=== PATIENT | female | born 1985 | race Hispanic/Latino ===

== ENCOUNTER 2022-02-18 18:06 | Emergency (ER) | payer SELFPAY ==
--- OUTSIDE RECORDS SUMMARY | 2022-02-18 18:11 | XMS REPORT | Continuity of Care Document ---
:[address] [facility] t Address [address] [place] [address] Care Team Providers Name Role Phone Felton Attending Clinician Unavailable Sara_Sadaf Attending Clinician Unavailable RUPALI Attending Clinician Unavailable Casey Attending Clinician Unavailable Kris_Sadaf Admitting Clinician Unavailable Sara_M Admitting Clinician Unavailable RUPALI Admitting Clinician Unavailable Casey Admitting Clinician Unavailable Payers Payer Name Policy Type Policy Number Effective Date Expiration Date S cam[id number] 2019 [place] 00:00:00 [place] [id number] [facility] (MEDICAID) [facility] [id number] 2017 2019 (PPO) 00:00:00 00:00:00 [facility] [id number] 2015 2019 [facility] 00:00:00 00:00:00 (MEDICAID O) Problems Condition Condition Condition Status Onset Resolution Last Treating Co mments Source Name Details Category Date Date Treatment Clinician Date Headache Headache Problem Active [facility] 5-05 da 00:00: Medical 00 Group Furuncle Furuncle Problem Active [facility] [facility] of vulva of Vulva 2-08 da 00:00: Medical 00 Group Persistent Persistent Problem Active M [facility] microscopi Microscopi 6-05 da c c 00:00: Medical hematuria Hematuria 00 Grou p Hearing Hearing Problem Active [place] loss Loss [facility] Allergies, Adverse Reactions, Alerts Allergy Allergy Status Severity Reaction(s) Onset Inactive Treating Comm ents Source Name Type Date Date Clinician Tylenol Allergy Active Mild Rash [place] to da substanc Medical e Group Social History Smoking Status Start Date Stop Date Source Never Smoker [facility] Medications Ordered Filled Start Stop Current Ordering Indication Dosage Frequency Signature Comments Components Source Medication Medication Date Date Medication? Clinician (SIG) Name Name Augmentin Augmentin No 10mL Q12H Augmentin [place] 250 mg-62.5 250 mg-62.5 250 d a mg/5 mL mg/5 mL mg-62.5 Medica l oral oral mg/5 mL Group suspension suspension oral Take 10 mL Take 10 mL suspension every 12 every 12 Take 10 mL hours by hours by every 12 oral route oral route hours by for 5 days. for 5 days. oral route for 5 days. baclofen 10 baclofen 10 No baclofen [facility] mg tablet mg tablet 10 mg da TAKE 1 TAKE 1 tablet Medical TABLET BY TABLET BY TAKE 1 Corina up MOUTH THREE MOUTH THREE TABLET BY TIMES DAILY TIMES DAILY MOUTH NEEDED NEEDED THREE TIMES DAILY NEEDED Diflucan Diflucan No 1 Q1D Diflucan [facility] 100 mg 100 mg 100 mg da tablet Take tablet Take tablet Medical 1 tablet 1 tablet Take 1 Group every day every day tablet by oral by oral every day route for 3 route for 3 by oral days. days. route for 3 days. doxycycline doxycycline No doxycyclin [place] hyclate 100 hyclate 100 e hyclate da mg tablet mg tablet 100 mg Med ical TAKE ONE TAKE ONE tablet Group (1) TABLET (1) TABLET TAKE ONE BY MOUTH BY MOUTH (1) TABLET DAILY WITH DAILY WITH BY MOUTH FOOD. TAKE FOOD. TAKE DAILY WITH 2 HOURS 2 HOURS FOOD. TAKE BEFORE OR BEFORE OR 2 HOURS AFTER AFTER BEFORE OR VITAMIN VITAMIN AFTER SUPPLEMENTS SUPPLEMENTS VITAMIN . . SUPPLEMENT S. metronidazo metronidazo No metronidaz [place] le 0.75 % le 0.75 % ole 0.75 % da vaginal gel vaginal gel vaginal Medical INSERT ONE INSERT ONE gel INSERT Group (1) (1) ONE (1) APPLICATORF APPLICATORF APPLICATOR UL EVERY UL EVERY FUL EVERY DAY BY DAY BY DAY BY VAGINAL VAGINAL VAGINAL ROUTE FOR 5 ROUTE FOR 5 ROUTE FOR DAYS. DAYS. 5 DAYS. nystatin nystatin No nystatin [facility] 100,000 100,000 100,000 da unit/gram unit/gram unit/gram Medical topical topical topical Group cream APPLY cream APPLY cream TO THE TO THE APPLY TO AFFECTED AFFECTED THE AREA(S) BY AREA(S) BY AFFECTED TOPICAL TOPICAL AREA(S) BY ROUTE 2 ROUTE 2 TOPICAL TIMES PER TIMES PER ROUTE 2 DAY DAY TIMES PER DAY nystatin-tr nystatin-tr No nystatin-t [place] iamcinolone iamcinolone riamcinolo da 100,000 100,000 ne 100,000 Med ical unit/g-0.1 unit/g-0.1 unit/g-0.1 Group % topical % topical % topical cream APPLY cream APPLY cream TO THE TO THE APPLY TO AFFECTED AFFECTED THE AREA(S) BY AREA(S) BY AFFECTED TOPICAL TOPICAL AREA(S) BY ROUTE 2 ROUTE 2 TOPICAL TIMES PER TIMES PER ROUTE 2 DAY IN THE DAY IN THE TIMES PER MORNING AND MORNING AND DAY IN THE EVENING. EVENING. MORNING AND EVENING. tretinoin tretinoin No tretinoin [place] 0.1 % 0.1 % 0.1 % da topical topical topical Medica l cream APPLY cream APPLY cream Group PEA-SIZED PEA-SIZED APPLY AMOUNT TO AMOUNT TO PEA-SIZED ENTIRE FACE ENTIRE FACE AMOUNT TO AT BEDTIME, AT BEDTIME, ENTIRE WASH OFF IN WASH OFF IN FACE AT AM AM BEDTIME, WASH OFF IN AM triamcinolo triamcinolo No triamcinol [place] ne ne one da acetonide acetonide acetonide Medical 0.5 % 0.5 % 0.5 % Group topical topical topical cream APPLY cream APPLY cream A THIN A THIN APPLY A LAYER TO LAYER TO THIN LAYER THE THE TO THE AFFECTED AFFECTED AFFECTED AREA(S) BY AREA(S) BY AREA(S) BY TOPICAL TOPICAL TOPICAL ROUTE 2-3 ROUTE 2-3 ROUTE 2-3 TIMES PER TIMES PER TIMES PER DAY DAY DAY metronidazo metronidazo No 1applic Q1D metronidaz [place] le 0.75 % le 0.75 % ator(s) ole 0.75 % da (37.5 mg/5 (37.5 mg/5 ful (37.5 mg/5 Medical gram) gram) gram) Group vaginal gel vaginal gel vaginal Insert 1 Insert 1 gel Insert applicatorf applicatorf 1 ul every ul every applicator day by day by ful every vaginal vaginal day by route at route at vaginal bedtime for bedtime for route at 5 days. 5 days. bedtime for 5 days. spironolact spironolact No spironolac [place] one 50 mg one 50 mg tone 50 mg da tablet TAKE tablet TAKE tablet Medical ONE (1) ONE (1) TAKE ONE Group TABLET(S) TABLET(S) (1) BY MOUTH BY MOUTH TABLET(S) DAILY. DAILY. BY MOUTH DAILY. tretinoin tretinoin No tretinoin [facility] 0.1 % 0.1 % 0.1 % da topical topical topical Medica l cream APPLY cream APPLY cream Group TO ACNE AT TO ACNE AT APPLY TO BEDTIME, BEDTIME, ACNE AT WASH OFF IN WASH OFF IN BEDTIME, THE THE WASH OFF MORNING. MORNING. IN THE MORNING. Vital Signs Vital Name Observation Time Observation Value Comments Source BP Diastolic 2022-01-26 00:00:00 80 mm[Hg] [facility] Height 2022-01-26 00:00:00 59 [in_i] [facility] BMI (Body Mass 2022-01-26 00:00:00 28.9 kg/m2 [facility] Index) Group BP Systolic 2022-01-26 00:00:00 128 mm[Hg] [facility] Body Weight 2022-01-26 00:00:00 143 [lb_av] [facility] BP Diastolic 2021-08-12 00:00:00 78 mm[Hg] [facility] Height 2021-08-12 00:00:00 59 [in_i] [facility] BMI (Body Mass 2021-08-12 00:00:00 28.7 kg/m2 [facility] Index) Group BP Systolic 2021-08-12 00:00:00 126 mm[Hg] [facility] Body Weight 2021-08-12 00:00:00 142 [lb_av] [facility] BP Diastolic 2021-06-07 00:00:00 70 mm[Hg] [facility] Height 2021-06-07 00:00:00 59 [in_i] [facility] BMI (Body Mass 2021-06-07 00:00:00 28 kg/m2 [facility] Index) Group BP Systolic 2021-06-07 00:00:00 99 mm[Hg] [facility] Body Weight 2021-06-07 00:00:00 138.6 [lb_av] [facility] BP Diastolic 2021-06-01 00:00:00 77 mm[Hg] [facility] Height 2021-06-01 00:00:00 59 [in_i] [facility] BMI (Body Mass 2021-06-01 00:00:00 28.2 kg/m2 [facility] Index) Group BP Systolic 2021-06-01 00:00:00 124 mm[Hg] [facility] Body Weight 2021-06-01 00:00:00 2230.4 [oz_av] [facility] BP Diastolic 2020-11-23 00:00:00 86 mm[Hg] [facility] Height 2020-11-23 00:00:00 59 [in_i] [facility] BP Systolic 2020-11-23 00:00:00 118 mm[Hg] [facility] BP Diastolic 2020-11-09 00:00:00 80 mm[Hg] [facility] Height 2020-11-09 00:00:00 59 [in_i] [facility] BMI (Body Mass 2020-11-09 00:00:00 26.5 kg/m2 [facility] Index) Group BP Systolic 2020-11-09 00:00:00 110 mm[Hg] [facility] Body Weight 2020-11-09 00:00:00 131.3 [lb_av] [facility] BP Diastolic 2020-07-19 00:00:00 76 mm[Hg] [facility] Height 2020-07-19 00:00:00 59 [in_i] [facility] BMI (Body Mass 2020-07-19 00:00:00 27 kg/m2 [facility] Index) Group BP Systolic 2020-07-19 00:00:00 110 mm[Hg] [facility] Body Weight 2020-07-19 00:00:00 2136 [oz_av] [facility] BP Diastolic 2019-05-14 00:00:00 77 mm[Hg] [facility] Height 2019-05-14 00:00:00 59 [in_i] [facility] BMI (Body Mass 2019-05-14 00:00:00 27.3 kg/m2 [facility] Index) Group BP Systolic 2019-05-14 00:00:00 114 mm[Hg] [facility] Body Weight 2019-05-14 00:00:00 2166 [oz_av] [facility] Height 2018-11-15 00:00:00 59 [in_i] [facility] BMI (Body Mass 2018-11-15 00:00:00 25.7 kg/m2 [facility] Index) Group Body Weight 2018-11-15 00:00:00 127.4 [lb_av] [facility] BP Diastolic 2018-10-15 00:00:00 68 mm[Hg] [facility] Height 2018-10-15 00:00:00 59 [in_i] [facility] BP Systolic 2018-10-15 00:00:00 108 mm[Hg] [facility] BP Diastolic 2018-09-26 00:00:00 66 mm[Hg] [facility] Height 2018-09-26 00:00:00 59 [in_i] [facility] BMI (Body Mass 2018-09-26 00:00:00 28.1 kg/m2 [facility] Index) Group BP Systolic 2018-09-26 00:00:00 122 mm[Hg] [facility] Body Weight 2018-09-26 00:00:00 139 [lb_av] [facility] BP Diastolic 2018-08-21 00:00:00 70 mm[Hg] [facility] Height 2018-08-21 00:00:00 59 [in_i] [facility] BMI (Body Mass 2018-08-21 00:00:00 27.3 kg/m2 [facility] Index) Group BP Systolic 2018-08-21 00:00:00 110 mm[Hg] [facility] Body Weight 2018-08-21 00:00:00 135.3 [lb_av] [facility] BP Diastolic 2018-07-26 00:00:00 57 mm[Hg] [facility] Height 2018-07-26 00:00:00 59 [in_i] [facility] BMI (Body Mass 2018-07-26 00:00:00 26.9 kg/m2 [facility] Index) Group BP Systolic 2018-07-26 00:00:00 105 mm[Hg] [facility] Body Weight 2018-07-26 00:00:00 133.2 [lb_av] [facility] BP Diastolic 2018-06-27 00:00:00 74 mm[Hg] [facility] Height 2018-06-27 00:00:00 59 [in_i] [facility] BMI (Body Mass 2018-06-27 00:00:00 27 kg/m2 [facility] Index) Group BP Systolic 2018-06-27 00:00:00 110 mm[Hg] [facility] Body Weight 2018-06-27 00:00:00 133.5 [lb_av] [facility] BP Diastolic 2018-06-06 00:00:00 63 mm[Hg] [facility] Height 2018-06-06 00:00:00 59 [in_i] [facility] BMI (Body Mass 2018-06-06 00:00:00 26.1 kg/m2 [facility] Index) Group BP Systolic 2018-06-06 00:00:00 104 mm[Hg] [facility] Body Weight 2018-06-06 00:00:00 129 [lb_av] [facility] BP Diastolic 2018-05-14 00:00:00 [facility] 2018-05-14 00:00:00 59 [in_i] [facility] BMI (Body Mass 2018-05-14 00:00:00 25.2 kg/m2 [facility] Index) Group BP Systolic 2018-05-14 00:00:00 109 mm[facility]Hg[facility] Body Weight 2018-05-14 00:00:00 125 [lb_av] [facility] Procedures Procedure Date / Time Performing Clinician Source Performed CT, head, w/o contrast 2020-07-19 00:00:00 [facility] US, obstetric, limited 2018-10-15 00:00:00 [facility] US, obstetric, limited 2018-09-26 00:00:00 [facility] ULTRASOUND REPEAT 2018-08-21 00:00:00 [facility] ULTRASOUND, 2018-06-06 00:00:00 [facility] UTERUS REAL TIME WITH Group IMAGE DOC, AND MATERNAL EVAL PLUS DETAILED ANATOMIC EXAMINATION, TRANSABDOMINAL APPROACH; SINGLE OR FIRST GESTATION US, obstetric, limited 2018-06-06 00:00:00 [facility] US, obstetric, limited 2018-05-14 00:00:00 [facility] Dilation and Curettage 2013-06-06 00:00:00 [facility] Plan of Care Planned Activity Planned Date Details Comments Source Diagnostic Test Pending 2022-01-26 CT [facility] DNA, urine/swab Group [code = CT + NG + TV, DNA, urine/swab] Diagnostic Test Pending 2022-01-26 wet mount, [place] moe Medical 00:00:00 vaginal [code = Group wet mount, vaginal] Instructions [facility] Encounters Start End Encounter Admission Attending Care Care Encounter Source Date/Time Date/Time Type Type Clinicians Facility Department ID 2022-02-14 2022-02-14 Outpatient Hawkins_M [facility]G MMG [id number] [facility] 00:00:00 00:00:00 1129 melania [facility] 2022-02-13 2022-02-13 Outpatient Hawkins_M MMG MMG [id number] [facility] 00:00:00 00:00:00 1128 [facility] 2022-01-26 2022-01-26 Outpatient White_M MMG MMG [id number] [facility] 00:00:00 00:00:00 1110 [facility] 2022-01-26 2022-01-26 Benigno MMG [place] - [id number] [facility] 00:00:00 00:00:00 Discovery melania Murry MD: [address] [place] [phone] , Ph. [phone] 2021-12-19 2021-12-19 Outpatient White_M MMG MMG [id number] [facility] 00:00:00 00:00:00 1003 [facility] 2021-11-18 2021-11-18 Outpatient White_M MMG MMG [id number] [facility] 00:00:00 00:00:00 0902 [facility] 2021-10-14 2021-10-14 Outpatient White_M MMG MMG [id number] [facility] 00:00:00 00:00:00 0729 [facility] 2021-09-27 2021-09-27 Outpatient STACY_ROM LORENZANA [place] [id number] [facility] 05:32:00 05:32:00 HN 0712 [facility] Program 2021-09-09 2021-09-09 Outpatient White_M MMG MMG [id number] [facility] 04:36:00 04:36:00 0624 [facility] 2021-08-12 2021-08-12 Benigno White_[place] MM[place] - [id number] [facility] 00:00:00 00:00:00 Discovery Loco 0527 melania MD: [address] [place] [phone] , Ph. [phone] 2021-08-05 2021-08-05 Outpatient White_M MMG MMG [id number] [facility] 06:47:00 06:47:00 0520 Medical Group 2021-07-01 2021-07-01 [place] [id number] [facility] 03:31:00 03:31:00 0415 [facility] 2021-06-29 2021-06-29 Outpatient White_M MMG MMG [id number] [facility] 03:16:00 03:16:00 0413 [facility] 2021-06-07 2021-06-07 Marisol White_[place] MM[place] - [id number] [facility] 00:00:00 00:00:00 Discovery Sara 0322 [facility]: [address] [address] , Ph. [phone] 2021-06-01 2021-06-01 Nohemy White_M MMG [place] - [id number] [facility] 00:00:00 00:00:00 Karen Andersen 0316 melania Ponce [facility] Medical [employer]: [address] [place] [address], [place] [phone] , Ph. 2020-12-02 2020-12-02 [place] [id number] [facility] 03:41:00 03:41:00 0916 [facility] 2020-11-23 2020-11-23 Nohemy White_[place] MMG [place] - [id number] [facility] 00:00:00 00:00:00 Karen Andersen 0907 melania Ponce [facility] Medical [employer]: [address] [place] [address], [place] [address] , Ph. 2020-11-09 2020-11-09 Marisol White_[place] MMG [place] - [id number] [facility] 00:00:00 00:00:00 Discovery Sara 0824 melania [facility]: [address] [address] , Ph. [phone] 2020-10-21 2020-10-21 [place] [id number] [facility] 01:19:00 01:19:00 0805 [facility] 2020-09-16 2020-09-16 Outpatient Kris_M MMG MMG [id number] [facility] 02:11:00 02:11:00 0701 [facility] 2020-08-13 2020-08-13 Outpatient Kris_M MMG MMG [id number] [facility] 01:02:00 01:02:00 0528 [facility] 2020-07-19 2020-07-19 Nohemy Kris_M MMG [place] - [id number] [facility] 00:00:00 00:00:00 [facility] 0[facility] [employer]: [address] [facility] [address], [place] [address] , Ph. 2020-07-16 2020-07-16 [place] [id number] [place] 04:31:00 04:31:00 0430 [facility] 2020-07-09 2020-07-09 Outpatient G_Pappas MMG MMG [id number] [facility] 01:03:00 01:03:00 0423 Medical Group 2020-06-04 2020-06-04 Outpatient G_Pappas MMG MMG [id number] [place] 01:04:00 01:04:00 0319 Medical Group 2020-04-30 2020-04-30 Outpatient G_Pappas MMG MMG [id number] [facility] 01:02:00 01:02:00 0212 [facility] 2020-04-27 2020-04-27 Outpatient G_Pappas MMG MMG [id number] [facility] 11:52:00 11:52:00 0209 [facility] 2020-04-26 2020-04-26 Outpatient G_Pappas MMG MMG [id number] [facility] 11:13:00 11:13:00 0208 Medical Group 2020-02-05 2020-02-05 Outpatient G_Pappas MMG MMG [id number] [facility] 05:16:00 05:16:00 1119 [facility] 2020-02-04 2020-02-04 Outpatient G_Pappas MMG [facility] [id number] [facility] 02:35:00 02:35:00 1118 [facility] 2019-10-13 2019-10-13 Outpatient G_Pappas MMG [facility] 2019 [place] 03:07:00 03:07:00 0727 [facility] 2019-05-15 2019-05-15 Outpatient G_Pappas MMG [facility] 2019 [facility] 09:39:00 09:39:00 0227 da [facility] 2019-05-14 2019-05-14 Mima G_Pappas [facility] [place] - [id number] [facility] 00:00:00 00:00:00 Discovery Roxana 0226 da [employer]: [address] [place] [phone] , Ph. 2018-11-15 2018-11-15 Benigno [facility] [place] - [id number] [facility] 00:00:00 00:00:00 Discovery Loco 0830 melania MD: [address] [place] [phone] , Ph. [phone] 2018-10-15 2018-10-15 Myah [facility] [place] - [id number] [facility] 00:00:00 00:00:00 Charan Andersen 0730 melania [facility] baldo MD: [address] [place] [phone] , Ph. [phone] 2018-09-26 2018-09-26 Benigno [facility] [place] - [id number] [facility] 00:00:00 00:00:00 Discovery Loco 0711 melania MD: [address] [place] [phone] , Ph. [phone] 2018-08-21 2018-08-21 Ceci Tai [facility] [place] [place] - [id number] [facility] 00:00:00 00:00:00 Discovery Mike 0605 da WHNP: [address] [place] [phone] , Ph. [phone] 2018-07-26 2018-07-26 Myah [facility] [place] - [id number] [facility] 00:00:00 00:00:00 Charan Andersen 0510 [facility] MD: [address] [place] [phone] , Ph. [phone] 2018-06-27 2018-06-27 Benigno [facility] [place] - [id number] [facility] 00:00:00 00:00:00 Discovery Loco 0411 melania MD: [address] [place] [phone] , Ph. [phone] 2018-06-06 2018-06-06 Ceci Tai [facility] [place] [place] - [id number] [facility] 00:00:00 00:00:00 Discovery Mike 0321 da WHNP: [address] [place], [place] [phone] , Ph. [phone] 2018-05-14 2018-05-14 Benigno [facility] [place] - [id number] [facility] 00:00:00 00:00:00 Discovery Loco 0226 melania DON: [address] [place] [phone] , Ph. [phone] Results Test Description Test Time Test Comments Results Result Comments Source Microscopic observation [Identifier] in Vaginal fluid by Wet 2022-01-26 09:47:06 preparation Test Item Value Reference Range Interpretation Comme nts Clue Cells (test code = Clue Cells) positive WBCs (test code = WBCs) positive Trichomonads (test code = Trichomonads) negative Epithelial cells (test code = Epithelial cells) abnormal RBCs (test code = RBCs) positive [facility], [id number] 11:11:00 Test Item Value Reference Range Interpretation Comments Strep Result (test code = Strep positive Result) [facility] [Identifier] in Vaginal fluid by Wet [id number] 10:05:36 Test Item Value Reference Range Interpretation Comments Clue Cells (test code = Clue Cells) negative WBCs (test code = WBCs) positive Trichomonads (test code = negative Trichomonads) Epithelial cells (test code = normal Epithelial cells) RBCs (test code = RBCs) negative [facility] macro (dipstick) panel - [id number] 09:40:35 Test Item Value Reference Range Interpretation Comments Leukocytes (test code = Leukocytes) Small Nitrite (test code = Nitrite) negative Urobilinogen (test code = .2 Urobilinogen) Protein (test code = Protein) Negative pH (test code = pH) 5.0 Blood (test code = Blood) Moderate Specific [place] (test code = 1.030 Specific [place]) Ketone (test code = Ketone) Negative Bilirubin (test code = Bilirubin) Negative Glucose (test code = Glucose) Negative Appearance (test code = Appearance) Clear Color (test code = Color) Yellow [facility] macro (dipstick) panel - [id number] 10:11:23 Test Item Value Reference Range Interpretation Comments Leukocytes (test code = Leukocytes) Trace Nitrite (test code = Nitrite) negative Urobilinogen (test code = .2 Urobilinogen) Protein (test code = Protein) Negative pH (test code = pH) 5.5 Blood (test code = Blood) Moderate Specific [place] (test code = 1.030 Specific [place]) Ketone (test code = Ketone) Trace Bilirubin (test code = Bilirubin) Small Glucose (test code = Glucose) Negative Appearance (test code = Appearance) Clear Color (test code = Color) Yellow [facility] macro (dipstick) panel - [id number] 10:11:23 Test Item Value Reference Range Interpretation Comments Leukocytes (test code = Leukocytes) Trace Nitrite (test code = Nitrite) negative Urobilinogen (test code = .2 Urobilinogen) Protein (test code = Protein) Negative pH (test code = pH) 5.5 Blood (test code = Blood) Moderate Specific [place] (test code = 1.030 Specific [place]) Ketone (test code = Ketone) Trace Bilirubin (test code = Bilirubin) Small Glucose (test code = Glucose) Negative Appearance (test code = Appearance) Clear Color (test code = Color) Yellow [facility] complete W Reflex Culture panel - Urine 2021-06-02 10:13:00 Test Item Value Reference Range Interpretation Comments Color of Urine by Auto (test yellow code = 16857-4) Appearance of Urine (test code turbid clear = 5767-9) Glucose [Mass/volume] in Urine negative negative (test code = 2350-7) bilirubin, urine (test code = negative negative bilirubin, urine) ketone, urine (test code = negative negative ketone, urine) Specific gravity of Urine by >=1.030 1.003-1.030 Automated test strip (test code = 43418-6) Hemoglobin [Presence] in Urine large negative H by Test strip (test code = 5794-3) pH of Urine (test code = 5.500 5-9 2756-5) protein urine (UA) (test code = negative negative protein urine (UA)) Urobilinogen [Presence] in 0.2 E.U./dL 0.2-1.0 Urine (test code = 55046-9) Nitrite [Presence] in Urine by positive negative Test strip (test code = 5802-4) urine leukocyte esterase (test negative negative code = urine leukocyte esterase) Erythrocytes [Presence] in =6-10 0-5 Urine (test code = 05167-5) WBC, urine (test code = WBC, none seen 0-5 urine) bacteria, urine (test code = none detected none detect bacteria, urine) urine culture added? (test code no = urine culture added?) Amorphous sediment [Presence] full field none seen in Urine sediment by Light microscopy (test code = 8246-1) [facility] 2000 panel - Serum or Plasma 2021-06-02 10:13:00 Test Item Value Reference Range Interpretation Comments Glucose [Mass/volume] in Serum or 89 mg/dL 74-106 Plasma (test code = 2345-7) Urea nitrogen [Mass/volume] in 12 mg/dL 6-20 Serum or Plasma (test code = 3094-0) osmolality calculated,serum (test 273 mOsm/kg 280-300 L code = osmolality calculated,serum) creatinine (test code = 0.48 mg/dL 0.50-0.90 L creatinine) glomerular filtration rate (test >60.00 code = glomerular filtration rate) Urea nitrogen/Creatinine [Mass 25.0 12.0-20.0 H Ratio] in Serum or Plasma (test code = 3097-3) sodium level (test code = sodium 137 mmol/L 135-145 level) potassium level (test code = 3.8 mmol/L 3.5-5.2 potassium level) chloride level (test code = 104 mmol/L 98-108 chloride level) CO2 (test code = CO2) 23 mmol/L 21-32 anion gap (test code = anion gap) 13.8 mEq/L 12.0-20.0 calcium level (test code = 8.9 mg/dL 8.6-10.0 calcium level) total protein (test code = total 7.4 g/dL 6.6-8.7 protein) albumin (test code = albumin) 4.4 g/dL 3.5-5.2 globulin (test code = globulin) 3.0 g/dL 1.5-4.5 A/G ratio (test code = A/G ratio) 1.5 >1.0 bilirubin,total (test code = 0.4 mg/dL 0.0-1.2 bilirubin,total) AST/SGOT (test code = AST/SGOT) 17 U/L 15-32 Alanine aminotransferase 15 U/L 0-33 [Enzymatic activity/volume] in Serum or Plasma (test code = 1742-6) Alkaline phosphatase [Enzymatic 37 U/L 35-105 activity/volume] in Serum or Plasma (test code = 6768-6) [facility] - Serum or [id number] 10:13:00 Test Item Value Reference Range Interpretation Comments cholesterol level (test code = 136 mg/dL 150-200 L cholesterol level) triglycerides level (test code = 62 mg/dL <150 triglycerides level) HDL cholesterol (test code = HDL 68 mg/dL >65 cholesterol) LDL cholesterol direct (test code = 64 mg/dL <100 LDL cholesterol direct) cholesterol risk ratio (test code = 2.000 cholesterol risk ratio) [facility]Ur[facility] W Reflex Culture panel - Urine 2021-06-02 10:13:00 Test Item Value Reference Range Interpretation Comments Color of Urine by Auto (test yellow code = 25311-6) Appearance of Urine (test code turbid clear = 5767-9) Glucose [Mass/volume] in Urine negative negative (test code = 2350-7) bilirubin, urine (test code = negative negative bilirubin, urine) ketone, urine (test code = negative negative ketone, urine) Specific gravity of Urine by >=1.030 1.003-1.030 Automated test strip (test code = 69779-9) Hemoglobin [Presence] in Urine large negative H by Test strip (test code = 5794-3) pH of Urine (test code = 5.500 5-9 2756-5) protein urine (UA) (test code = negative negative protein urine (UA)) Urobilinogen [Presence] in 0.2 E.U./dL 0.2-1.0 Urine (test code = 14216-4) Nitrite [Presence] in Urine by positive negative Test strip (test code = 5802-4) urine leukocyte esterase (test negative negative code = urine leukocyte esterase) Erythrocytes [Presence] in =6-10 0-5 Urine (test code = 17127-6) WBC, urine (test code = WBC, none seen 0-5 urine) bacteria, urine (test code = none detected none detect bacteria, urine) urine culture added? (test code no = urine culture added?) Amorphous sediment [Presence] full field none seen in Urine sediment by Light microscopy (test code = 8246-1) [facility] 2000 [facility] - Serum or Plasma 2021-06-02 10:13:00 Test Item Value Reference Range Interpretation Comments Glucose [Mass/volume] in Serum or 89 mg/dL 74-106 Plasma (test code = 2345-7) Urea nitrogen [Mass/volume] in 12 mg/dL 6-20 Serum or Plasma (test code = 3094-0) osmolality calculated,serum (test 273 mOsm/kg 280-300 L code = osmolality calculated,serum) creatinine (test code = 0.48 mg/dL 0.50-0.90 L creatinine) glomerular filtration rate (test >60.00 code = glomerular filtration rate) Urea nitrogen/Creatinine [Mass 25.0 12.0-20.0 H Ratio] in Serum or Plasma (test code = 3097-3) sodium level (test code = sodium 137 mmol/L 135-145 level) potassium level (test code = 3.8 mmol/L 3.5-5.2 potassium level) chloride level (test code = 104 mmol/L 98-108 chloride level) CO2 (test code = CO2) 23 mmol/L 21-32 anion gap (test code = anion gap) 13.8 mEq/L 12.0-20.0 calcium level (test code = 8.9 mg/dL 8.6-10.0 calcium level) total protein (test code = total 7.4 g/dL 6.6-8.7 protein) albumin (test code = albumin) 4.4 g/dL 3.5-5.2 globulin (test code = globulin) 3.0 g/dL 1.5-4.5 A/G ratio (test code = A/G ratio) 1.5 >1.0 bilirubin,total (test code = 0.4 mg/dL 0.0-1.2 bilirubin,total) AST/SGOT (test code = AST/SGOT) 17 U/L 15-32 Alanine aminotransferase 15 U/L 0-33 [Enzymatic activity/volume] in Serum or Plasma (test code = 1742-6) Alkaline phosphatase [Enzymatic 37 U/L 35-105 activity/volume] in Serum or Plasma (test code = 6768-6) [facility] - Serum or [id number] 10:13:00 Test Item Value Reference Range Interpretation Comments cholesterol level (test code = 136 mg/dL 150-200 L cholesterol level) triglycerides level (test code = 62 mg/dL <150 triglycerides level) HDL cholesterol (test code = HDL 68 mg/dL >65 cholesterol) LDL cholesterol direct (test code = 64 mg/dL <100 LDL cholesterol direct) cholesterol risk ratio (test code = 2.000 cholesterol risk ratio) [facility]CB [facility] Auto Differential panel - [id number] 00:00:00 Test Item Value Reference Range Interpretation Comments white blood count (test code = 6.0 K/uL 4.0-11.5 white blood count) red blood count (test code = red 4.40 M/uL 3.80-5.20 blood count) hemoglobin (test code = 12.6 g/dL 10.5-15.7 hemoglobin) hematocrit (test code = 38.0 % 34.0-50.0 hematocrit) MCV [Entitic volume] (test code = 86.4 fL 86.0-100.0 89702-0) mean corpuscular hemoglobin (test 28.6 pg 26.2-33.4 code = mean corpuscular hemoglobin) mean corpuscular HGB conc (test 33.2 g/dL 30.0-34.0 code = mean corpuscular HGB conc) red cell distribution width (test 12.7 % 12.0-15.5 code = red cell distribution width) platelet count (test code = 238 K/uL 165-450 platelet count) mean platelet volume (test code = 9.9 fL 9.4-12.6 mean platelet volume) Segmented neutrophils/100 68.6 % 44.4-80.1 leukocytes in Blood (test code = 03000-4) Immature granulocytes [#/volume] 0.02 K/uL 0.00-0.03 in Blood (test code = 75744-4) lymphocyte% (test code = 20.6 % 10.0-50.0 lymphocyte%) mono % (test code = mono %) 8.5 % 3.6-12.0 eos % (test code = eos %) 1.3 % 0.0-5.4 Basophils/100 leukocytes in 0.7 % 0.1-1.2 Specimen (test code = 45601-9) Band form neutrophils [#/volume] 4.14 K/uL 1.56-6.13 in Blood (test code = 83868-6) Lymphocytes [#/volume] in Specimen 1.24 K/uL 1.18-3.74 by Automated count (test code = 78378-8) mono # (test code = mono #) 0.51 K/uL 0.24-0.86 eos # (test code = eos #) 0.08 K/uL 0.04-0.36 basophil # (test code = basophil 0.04 K/uL 0.01-0.08 #) NRBC% (test code = NRBC%) 0 /100 WBC 0-0.2 NRBC# (test code = NRBC#) 0 K/uL [facility] HospitalHemoglobin A1c [Mass/volume] in [id number] 00:00:00 Test Item Value Reference Range Interpretation Comments Hemoglobin A1c [Mass/volume] in Blood 5.1 % 4.0-6.0 (test code = 22996-3) [facility] HospitalThyrotropin [Units/volume] in Serum or [id number] 00:00:00 Test Item Value Reference Range Interpretation Comments Thyrotropin [Units/volume] in 1.00 uIU/mL 0.36-3.74 Serum or Plasma (test code = 3016-3) [facility] HospitalThyroxine (T4) [Mass/volume] in Serum or [id number] 00:00:00 Test Item Value Reference Range Interpretation Comments T4 (test code = T4) 5.9 ug/dL 4.5-11.7 [facility] W Auto Differential panel - [id number] 00:00:00 Test Item Value Reference Range Interpretation Comments white blood count (test code = 6.0 K/uL 4.0-11.5 white blood count) red blood count (test code = red 4.40 M/uL 3.80-5.20 blood count) hemoglobin (test code = 12.6 g/dL 10.5-15.7 hemoglobin) hematocrit (test code = 38.0 % 34.0-50.0 hematocrit) MCV [Entitic volume] (test code = 86.4 fL 86.0-100.0 38114-2) mean corpuscular hemoglobin (test 28.6 pg 26.2-33.4 code = mean corpuscular hemoglobin) mean corpuscular HGB conc (test 33.2 g/dL 30.0-34.0 code = mean corpuscular HGB conc) red cell distribution width (test 12.7 % 12.0-15.5 code = red cell distribution width) platelet count (test code = 238 K/uL 165-450 platelet count) mean platelet volume (test code = 9.9 fL 9.4-12.6 mean platelet volume) Segmented neutrophils/100 68.6 % 44.4-80.1 leukocytes in Blood (test code = 25021-1) Immature granulocytes [#/volume] 0.02 K/uL 0.00-0.03 in Blood (test code = 64274-6) lymphocyte% (test code = 20.6 % 10.0-50.0 lymphocyte%) mono % (test code = mono %) 8.5 % 3.6-12.0 eos % (test code = eos %) 1.3 % 0.0-5.4 Basophils/100 leukocytes in 0.7 % 0.1-1.2 Specimen (test code = 19306-8) Band form neutrophils [#/volume] 4.14 K/uL 1.56-6.13 in Blood (test code = 72260-0) Lymphocytes [#/volume] in Specimen 1.24 K/uL 1.18-3.74 by Automated count (test code = 12938-4) mono # (test code = mono #) 0.51 K/uL 0.24-0.86 eos # (test code = eos #) 0.08 K/uL 0.04-0.36 basophil # (test code = basophil 0.04 K/uL 0.01-0.08 #) NRBC% (test code = NRBC%) 0 /100 WBC 0-0.2 NRBC# (test code = NRBC#) 0 K/uL [facility] HospitalHemoglobin A1c [Mass/volume] in [id number] 00:00:00 Test Item Value Reference Range Interpretation Comments Hemoglobin A1c [Mass/volume] in Blood 5.1 % 4.0-6.0 (test code = 34965-6) [facility] HospitalThyrotropin [Units/volume] in Serum or [id number] 00:00:00 Test Item Value Reference Range Interpretation Comments Thyrotropin [Units/volume] in 1.00 uIU/mL 0.36-3.74 Serum or Plasma (test code = 3016-3) [facility] HospitalThyroxine (T4) [Mass/volume] in Serum or [id number] 00:00:00 Test Item Value Reference Range Interpretation Comments T4 (test code = T4) 5.9 ug/dL 4.5-11.7 [facility] HospitalCandida sp DNA [Presence] in Vaginal fluid by MELI with probe [id number] 00:00:00 Test Item Value Reference Range Interpretation Comments asiya albicans by real-time PCR negative (test code = asiya albicans by real-time PCR) asiya tropicalis by real-time PCR negative (test code = asiya tropicalis by real-time PCR) asiya parapsilosis by real-time negative PCR (test code = asiya parapsilosis by real-time PCR) asiya glabrata by real-time PCR negative (test code = asiya glabrata by real-time PCR) [facility] HospitalCT + NG + TV, DNA, urine/[id number] 00:00:00 Test Item Value Reference Range Interpretation Comments chlamydia trachomatis by negative real-time PCR (reflex to azithromycin resistance by pyrosequencing) (test code = chlamydia trachomatis by real-time PCR (reflex to azithromycin resistance by pyrosequencing)) trichomonas vaginalis by negative real-time PCR (reflex to metronidazole resistance) (test code = trichomonas vaginalis by real-time PCR (reflex to metronidazole resistance)) gardnerella vaginalis by negative real-time PCR (test code = gardnerella vaginalis by real-time PCR) atopobium vaginae by positive A real-time PCR (test code = atopobium vaginae by real-time PCR) bacterial vaginosis positive A associated bacterium 2 (bvab2) by real-time PCR (test code = bacterial vaginosis associated bacterium 2 (bvab2) by real-time PCR) megasphaera species (type 1 positive (type1) A and type 2) by real-time PCR (test code = megasphaera species (type 1 and type 2) by real-time PCR) neisseria gonorrhoeae by negative real-time PCR (reflex to antibiotic resistance by molecular analysis) (test code = neisseria gonorrhoeae by real-time PCR (reflex to antibiotic resistance by molecular analysis)) lactobacillus (bv & av see comment panel) by real time PCR (test code = lactobacillus (bv & av panel) by real time PCR) [facility] HospitalBacteria identified in Urine by [id number] 11:58:00Bacteria Ur CultSh[facility] Hospitalantibiotic sensitivity testing, [id number] 11:58:00 Test Item Value Reference Range Interpretation Comments Gentamicin [Susceptibility] by Minimum <2 inhibitory concentration (NILAM) (test code = 267-5) Ampicillin [Susceptibility] by Minimum <8 inhibitory concentration (NILAM) (test code = 28-1) ceFAZolin [Susceptibility] by Minimum <2 inhibitory concentration (NILAM) (test code = 76-0) Trimethoprim+Sulfamethoxazole =2/38 [Susceptibility] by Minimum inhibitory concentration (NILAM) (test code = 516-5) Tetracycline [Susceptibility] by <4 Minimum inhibitory concentration (NILAM) (test code = 496-0) Amoxicillin+Clavulanate =8/4 [Susceptibility] by Minimum inhibitory concentration (NILAM) (test code = 20-8) Tobramycin [Susceptibility] by Minimum <4 inhibitory concentration (NILAM) (test code = 508-2) Nitrofurantoin [Susceptibility] by <32 Minimum inhibitory concentration (NILAM) (test code = 363-2) Cefotaxime [Susceptibility] by Minimum <2 inhibitory concentration (NILAM) (test code = 108-1) Cefepime [Susceptibility] by Minimum <8 inhibitory concentration (NILAM) (test code = 6644-9) levoFLOXacin [Susceptibility] by <2 Minimum inhibitory concentration (NILAM) (test code = 73634-6) Piperacillin+Tazobactam <16 [Susceptibility] by Minimum inhibitory concentration (NILAM) (test code = 412-7) cefTAZidime [Susceptibility] by Minimum <1 inhibitory concentration (NILAM) (test code = 133-9) cefTRIAXone [Susceptibility] by Minimum <1 inhibitory concentration (NILAM) (test code = 141-2) Ciprofloxacin [Susceptibility] by <1 Minimum inhibitory concentration (NILAM) (test code = 185-9) Imipenem [Susceptibility] by Minimum <1 inhibitory concentration (NILAM) (test code = 279-0) Ampicillin+Sulbactam [Susceptibility] =8/4 by Minimum inhibitory concentration (NILAM) (test code = 32-3) Ertapenem [Susceptibility] by Minimum <0.5 inhibitory concentration (NILAM) (test code = 65223-7) Aztreonam [Susceptibility] by Minimum <4 inhibitory concentration (NILAM) (test code = 44-8) Cefuroxime [Susceptibility] by Minimum <4 inhibitory concentration (NILAM) (test code = 20836-8) [facility] HospitalUrinalysis macro (dipstick) panel - [id number] 10:09:06 Test Item Value Reference Range Interpretation Comments Leukocytes (test code = Leukocytes) Small Nitrite (test code = Nitrite) positive Urobilinogen (test code = .2 Urobilinogen) Protein (test code = Protein) Trace pH (test code = pH) 5.5 Blood (test code = Blood) Moderate Specific [place] (test code = 1.030 Specific [place]) Ketone (test code = Ketone) Negative Bilirubin (test code = Bilirubin) Negative Glucose (test code = Glucose) Negative Appearance (test code = Appearance) Cloudy Color (test code = Color) Yellow [facility] HospitalUrinalysis macro (dipstick) panel - [id number] 10:09:06 Test Item Value Reference Range Interpretation Comments Leukocytes (test code = Leukocytes) Small Nitrite (test code = Nitrite) positive Urobilinogen (test code = .2 Urobilinogen) Protein (test code = Protein) Trace pH (test code = pH) 5.5 Blood (test code = Blood) Moderate Specific [place] (test code = 1.030 Specific [place]) Ketone (test code = Ketone) Negative Bilirubin (test code = Bilirubin) Negative Glucose (test code = Glucose) Negative Appearance (test code = Appearance) Cloudy Color (test code = Color) Yellow [facility] HospitalUrinalysis macro (dipstick) panel - [id number] 10:09:06 Test Item Value Reference Range Interpretation Comments Leukocytes (test code = Leukocytes) Small Nitrite (test code = Nitrite) positive Urobilinogen (test code = .2 Urobilinogen) Protein (test code = Protein) Trace pH (test code = pH) 5.5 Blood (test code = Blood) Moderate Specific [place] (test code = 1.030 Specific [place]) Ketone (test code = Ketone) Negative Bilirubin (test code = Bilirubin) Negative Glucose (test code = Glucose) Negative Appearance (test code = Appearance) Cloudy Color (test code = Color) [facility] - [id number] 08:56:00 Test Item Value Reference Range Interpretation Comments white blood count (test code = 5.9 K/uL 4.0-11.5 white blood count) red blood count (test code = red 4.60 M/uL 3.80-5.20 blood count) hemoglobin (test code = 12.5 g/dL 10.5-15.7 hemoglobin) hematocrit (test code = 40.0 % 34.0-50.0 hematocrit) MCV [Entitic volume] (test code = 87.0 fL 86-100 13016-5) mean corpuscular hemoglobin (test 27.2 pg 26.2-33.4 code = mean corpuscular hemoglobin) mean corpuscular HGB conc (test 31.3 g/dL 30-34 code = mean corpuscular HGB conc) red cell distribution width (test 13.2 % 12.0-15.5 code = red cell distribution width) platelet count (test code = 260 K/uL 165-450 platelet count) mean platelet volume (test code = 9.7 fL 9.4-12.6 mean platelet volume) Segmented neutrophils/100 58.2 % 44.4-80.1 leukocytes in Blood (test code = 14848-8) Immature granulocytes [#/volume] 0.0 K/uL 0.0-0.03 in Blood (test code = 58876-8) lymphocyte% (test code = 32.5 % 10.0-50.0 lymphocyte%) mono % (test code = mono %) 8.0 % 3.6-12.0 eos % (test code = eos %) 0.8 % 0.0-5.4 Basophils/100 leukocytes in 0.3 % 0.1-1.2 Unspecified specimen (test code = 35112-6) Band form neutrophils [#/volume] 3.44 K/uL 1.56-6.13 in Blood (test code = 18072-2) Lymphocytes [#/volume] in 1.9 K/uL 1.18-3.74 Unspecified specimen by Automated count (test code = 38432-9) mono # (test code = mono #) 0.47 K/uL 0.24-0.86 eos # (test code = eos #) 0.05 K/uL 0.04-0.36 basophil # (test code = basophil 0.02 K/uL 0.01-0.08 #) NRBC% (test code = NRBC%) 0 /100 WBC 0-0.2 NRBC# (test code = NRBC#) 0 K/uL [facility]Com[facility] 2000 [facility] - Serum or Plasma 2020-07-19 08:56:00 Test Item Value Reference Range Interpretation Comments glucose (test code = glucose) 79 mg/dL 74-106 Urea nitrogen [Mass/volume] in 13 mg/dL 6-20 Serum or Plasma (test code = 3094-0) osmolality calculated,serum (test 275 mOsm/kg 280-300 L code = osmolality calculated,serum) creatinine (test code = 0.6 mg/dL 0.50-0.90 creatinine) glomerular filtration rate (test >60.00 code = glomerular filtration rate) Urea nitrogen/Creatinine [Mass 21.7 12-20 H Ratio] in Serum or Plasma (test code = 3097-3) sodium level (test code = sodium 138 mmol/L 135-145 level) Potassium [Moles/volume] in Body 4.1 mmol/L 3.5-5.2 fluid (test code = 2821-7) chloride level (test code = 105 mmol/L 98-108 chloride level) CO2 (test code = CO2) 21 mmol/L 21-32 anion gap (test code = anion gap) 16.1 mEq/L 12-20 calcium level (test code = 9.1 mg/dL 8.6-10.0 calcium level) total protein (test code = total 7.5 g/dL 6.6-8.7 protein) albumin (test code = albumin) 4.5 g/dL 3.5-5.2 globulin (test code = globulin) 3.0 gm/dL A/G ratio (test code = A/G ratio) 1.5 >1.0 bilirubin,total (test code = 0.4 mg/dL 0.0-1.2 bilirubin,total) AST/SGOT (test code = AST/SGOT) 16 U/L 15-32 Alanine aminotransferase 12 U/L 0-33 [Enzymatic activity/volume] in Serum or Plasma (test code = 1742-6) Alkaline phosphatase [Enzymatic 31 U/L 35-105 L activity/volume] in Serum or Plasma (test code = 6768-6) [facility] W Auto Differential panel - [id number] 00:00:00 Test Item Value Reference Range Interpretation Comments white blood count (test code = 12.2 K/uL 4.0-11.5 H white blood count) red blood count (test code = red 4.15 M/uL 3.80-5.20 blood count) hemoglobin (test code = 10.3 g/dL 10.5-15.7 hemoglobin) hematocrit (test code = 33.8 % 34.0-50.0 hematocrit) Erythrocyte mean corpuscular 81.4 fL 86-100 L volume [Entitic volume] (test code = 49201-4) mean corpuscular hemoglobin (test 24.8 pg 26.2-33.4 L code = mean corpuscular hemoglobin) mean corpuscular HGB conc (test 30.5 g/dL 30-34 code = mean corpuscular HGB conc) red cell distribution width (test 14.0 % 12.0-15.5 code = red cell distribution width) platelet count (test code = 202 K/uL 165-450 platelet count) mean platelet volume (test code = 9.4 fL 9.4-12.6 mean platelet volume) Neutrophils.segmented/100 78.4 % 44.4-80.1 leukocytes in Blood (test code = 10680-9) Ig% (test code = Ig%) 0.7 % 0.0-0.4 H lymphocyte% (test code = 13.5 % 10.0-50.0 lymphocyte%) mono % (test code = mono %) 6.5 % 3.6-12.0 eos % (test code = eos %) 0.6 % 0.0-5.4 Basophils/100 leukocytes in 0.3 % 0.1-1.2 Unspecified specimen (test code = 67727-6) absolute neutrophil count (test 9.59 K/uL 1.56-6.13 H code = absolute neutrophil count) Ig# (test code = Ig#) 0.1 K/uL 0.0-0.03 H Lymphocytes [#/volume] in 1.7 K/uL 1.18-3.74 Unspecified specimen by Automated count (test code = 45158-4) mono # (test code = mono #) 0.79 K/uL 0.24-0.86 eos # (test code = eos #) 0.07 K/uL 0.04-0.36 basophil # (test code = basophil 0.04 K/uL 0.01-0.08 #) NRBC% (test code = NRBC%) 0 /100 WBC 0-0.2 NRBC# (test code = NRBC#) 0 K/uL [facility] HospitalUrinal[facility] complete panel - [id number] 00:00:00 Test Item Value Reference Range Interpretation Comments Color of Urine by Auto (test colorless code = 73536-2) Appearance of Urine (test code clear clear = 5767-9) Glucose [Presence] in Urine by negative negative Automated test strip (test code = 45595-7) Bilirubin.total [Mass/volume] negative negative in Urine (test code = 1978-6) Ketones [Mass/volume] in Urine negative negative by Automated test strip (test code = 10446-4) Specific gravity of Urine by 1.004 1.003-1.030 Automated test strip (test code = 46335-6) blood urine (test code = blood =1 negative H urine) pH of Urine (test code = 6.000 5-9 2756-5) protein urine (UA) (test code = negative negative protein urine (UA)) Urobilinogen [Presence] in normal 0.2-1.0 Urine (test code = 15450-4) Nitrite [Presence] in Urine by negative negative Test strip (test code = 5802-4) Leukocyte esterase [Presence] negative negative in Urine by Automated test strip (test code = 46831-9) Erythrocytes [#/volume] in =1-5 0-5 Urine by Automated count (test code = 798-9) Leukocytes [#/area] in Urine =1-5 0-5 sediment by Automated count (test code = 83738-4) Epithelial cells [Presence] in =1-5 0-5 Urine sediment by Light microscopy (test code = 76386-6) Bacteria identified in Urine by none detected none detect Culture (test code = 630-4) Casts [#/area] in Urine none detected none detect sediment by Automated count (test code = 29351-1) urine culture added? (test code no = urine culture added?) [facility] HospitalNlkagMhuts-8-Tmzstdnqdupfr.placental [Presence] in Vaginal [id number] 00:00:00 Test Item Value Reference Range Interpretation Comments Ixdsd-4-Ygzeuqdrzbfsr.placent weakly positive neg al [Presence] in Vaginal fluid (test code = 68433-2) [facility]CBC W Auto Differential panel - [id number] 00:00:00 Test Item Value Reference Range Interpretation Comments white blood count (test code = 11.0 K/uL 4.0-11.5 white blood count) red blood count (test code = red 2.83 M/uL 3.80-5.20 L blood count) hemoglobin (test code = 6.7 g/dL 10.5-15.7 L hemoglobin) hematocrit (test code = 22.9 % 34.0-50.0 hematocrit) Erythrocyte mean corpuscular 80.9 fL 86-100 L volume [Entitic volume] (test code = 53206-8) mean corpuscular hemoglobin (test 23.7 pg 26.2-33.4 L code = mean corpuscular hemoglobin) mean corpuscular HGB conc (test 29.3 g/dL 30-34 L code = mean corpuscular HGB conc) red cell distribution width (test 13.0 % 12.0-15.5 code = red cell distribution width) platelet count (test code = 233 K/uL 165-450 platelet count) mean platelet volume (test code = 9.0 fL 9.4-12.6 L mean platelet volume) Neutrophils.segmented/100 75.4 % 44.4-80.1 leukocytes in Blood (test code = 92222-3) Ig% (test code = Ig%) 0.5 % 0.0-0.4 H lymphocyte% (test code = 16.7 % 10.0-50.0 lymphocyte%) mono % (test code = mono %) 6.5 % 3.6-12.0 eos % (test code = eos %) 0.8 % 0.0-5.4 Basophils/100 leukocytes in 0.1 % 0.1-1.2 Unspecified specimen (test code = 42394-6) absolute neutrophil count (test 8.26 K/uL 1.56-6.13 H code = absolute neutrophil count) Ig# (test code = Ig#) 0.1 K/uL 0.0-0.03 H Lymphocytes [#/volume] in 1.8 K/uL 1.18-3.74 Unspecified specimen by Automated count (test code = 28995-0) mono # (test code = mono #) 0.71 K/uL 0.24-0.86 eos # (test code = eos #) 0.09 K/uL 0.04-0.36 basophil # (test code = basophil 0.01 K/uL 0.01-0.08 #) NRBC% (test code = NRBC%) 0 /100 WBC 0-0.2 NRBC# (test code = NRBC#) 0 K/uL [facility] HospitalReagin Ab [Presence] in Serum by [id number] 00:00:00 Test Item Value Reference Range Interpretation Comments Reagin Ab [Presence] in Serum by nonreactive nonreactive RPR (test code = 73997-8) [facility] HospitalHepatitis B virus surface Ag [Presence] in Serum 2018-10-17 00:00:00 Test Item Value Reference Range Interpretation Comments .hepatitis B surface antigen (test negative negative code = .hepatitis B surface antigen) [facility]ldiffcomm-[id number] 00:00:00Differential comment-P [facility] HospitalUrinalysis complete panel - [id number] 00:00:00 Test Item Value Reference Range Interpretation Comments Color of Urine by Auto (test yellow code = 58452-0) Appearance of Urine (test code clear clear = 5767-9) Glucose [Presence] in Urine by trace (30 negative Automated test strip (test code = 37239-6) Bilirubin.total [Mass/volume] negative negative in Urine (test code = 1978-6) Ketones [Mass/volume] in Urine =1 negative H by Automated test strip (test code = 19720-7) Specific gravity of Urine by 1.031 1.003-1.030 H Automated test strip (test code = 42178-1) blood urine (test code = blood =2 negative H urine) pH of Urine (test code = 6.000 5-9 2756-5) protein urine (UA) (test code = =1+ (50 negative H protein urine (UA)) Urobilinogen [Presence] in =2.0 0.2-1.0 H Urine (test code = 00835-5) Nitrite [Presence] in Urine by negative negative Test strip (test code = 5802-4) Leukocyte esterase [Presence] negative negative in Urine by Automated test strip (test code = 89220-8) Erythrocytes [#/volume] in =15-19 0-5 H Urine by Automated count (test code = 798-9) Leukocytes [#/area] in Urine =1-5 0-5 sediment by Automated count (test code = 67712-3) Epithelial cells [Presence] in =1-5 0-5 Urine sediment by Light microscopy (test code = 37087-0) Bacteria identified in Urine by none detected none detect Culture (test code = 630-4) Casts [#/area] in Urine =2-5 none detect sediment by Automated count (test code = 96524-9) urine culture added? (test code no = urine culture added?) [facility] UmwctNhmsv-3-Peeuxabenlebb.placental [Presence] in Vaginal [id number] 00:00:00 Test Item Value Reference Range Interpretation Comments Jkhvu-0-Sbjtzpohhivug.placent weakly positive neg al [Presence] in Vaginal fluid (test code = 55204-0) [facility] GroupBacteria identified in Urine by [id number] 00:00:00 Test Item Value Reference Range Interpretation Comments Bacteria identified in no growth after 2 Urine by Culture (test days code = 630-4) [facility] HospitalUrinalysis macro (dipstick) panel - [id number] 14:45:51 Test Item Value Reference Range Interpretation Comments Leukocytes (test code = Leukocytes) Trace Nitrite (test code = Nitrite) negative Urobilinogen (test code = 1 Urobilinogen) Protein (test code = Protein) Trace pH (test code = pH) 6.5 Blood (test code = Blood) Moderate Specific [place] (test code = 1.025 Specific [place]) Ketone (test code = Ketone) Negative Bilirubin (test code = Bilirubin) Negative Glucose (test code = Glucose) Negative Appearance (test code = Appearance) Clear Color (test code = Color) Yellow [facility] HospitalUrinalysis macro (dipstick) panel - [id number] 14:45:51 Test Item Value Reference Range Interpretation Comments Leukocytes (test code = Leukocytes) Trace Nitrite (test code = Nitrite) negative Urobilinogen (test code = 1 Urobilinogen) Protein (test code = Protein) Trace pH (test code = pH) 6.5 Blood (test code = Blood) Moderate Specific [place] (test code = 1.025 Specific [place]) Ketone (test code = Ketone) Negative Bilirubin (test code = Bilirubin) Negative Glucose (test code = Glucose) Negative Appearance (test code = Appearance) Clear Color (test code = Color) Yellow [facility] HospitalUr[facility]ysis macro (dipstick) panel - [id number] 08:35:42 Test Item Value Reference Range Interpretation Comments Leukocytes (test code = Leukocytes) Negative Nitrite (test code = Nitrite) negative Urobilinogen (test code = .2 Urobilinogen) Protein (test code = Protein) Trace pH (test code = pH) 6.0 Blood (test code = Blood) Moderate Specific [place] (test code = 1.030 Specific [place]) Ketone (test code = Ketone) Negative Bilirubin (test code = Bilirubin) Negative Glucose (test code = Glucose) Negative Appearance (test code = Appearance) Clear Color (test code = Color) Yellow [facility] HospitalUrinalysis macro (dipstick) panel - [id number] 14:18:37 Test Item Value Reference Range Interpretation Comments Leukocytes (test code = Leukocytes) Small Nitrite (test code = Nitrite) negative Urobilinogen (test code = 1 Urobilinogen) Protein (test code = Protein) Trace pH (test code = pH) 6.5 Blood (test code = Blood) Moderate Specific [place] (test code = 1.030 Specific [place]) Ketone (test code = Ketone) Negative Bilirubin (test code = Bilirubin) Negative Glucose (test code = Glucose) Negative Appearance (test code = Appearance) Clear Color (test code = Color) Yellow [facility] HospitalUr[facility]ysis macro (dipstick) panel - [id number] 14:18:37 Test Item Value Reference Range Interpretation Comments Leukocytes (test code = Leukocytes) Small Nitrite (test code = Nitrite) negative Urobilinogen (test code = 1 Urobilinogen) Protein (test code = Protein) Trace pH (test code = pH) 6.5 Blood (test code = Blood) Moderate Specific [place] (test code = 1.030 Specific [place]) Ketone (test code = Ketone) Negative Bilirubin (test code = Bilirubin) Negative Glucose (test code = Glucose) Negative Appearance (test code = Appearance) Clear Color (test code = Color) Yellow [facility]Ur[facility]ysis macro (dipstick) panel - [id number] 14:15:07 Test Item Value Reference Range Interpretation Comments Leukocytes (test code = Leukocytes) Small Nitrite (test code = Nitrite) negative Urobilinogen (test code = .2 Urobilinogen) Protein (test code = Protein) 30 pH (test code = pH) 6.0 Blood (test code = Blood) Moderate Specific [place] (test code = 1.030 Specific [place]) Ketone (test code = Ketone) Trace Bilirubin (test code = Bilirubin) Negative Glucose (test code = Glucose) Negative Appearance (test code = Appearance) Clear Color (test code = Color) Yellow [facility] HospitalUrinalysis macro (dipstick) panel - [id number] 14:15:07 Test Item Value Reference Range Interpretation Comments Leukocytes (test code = Leukocytes) Small Nitrite (test code = Nitrite) negative Urobilinogen (test code = .2 Urobilinogen) Protein (test code = Protein) 30 pH (test code = pH) 6.0 Blood (test code = Blood) Moderate Specific [place] (test code = 1.030 Specific [place]) Ketone (test code = Ketone) Trace Bilirubin (test code = Bilirubin) Negative Glucose (test code = Glucose) Negative Appearance (test code = Appearance) Clear Color (test code = Color) Yellow [facility] HospitalUr[facility]ysis macro (dipstick) panel - [id number] 10:55:04 Test Item Value Reference Range Interpretation Comments Leukocytes (test code = Leukocytes) Small Nitrite (test code = Nitrite) negative Urobilinogen (test code = .2 Urobilinogen) Protein (test code = Protein) Trace pH (test code = pH) 6.0 Blood (test code = Blood) Moderate Specific [place] (test code = 1.030 Specific [place]) Ketone (test code = Ketone) Negative Bilirubin (test code = Bilirubin) Negative Glucose (test code = Glucose) Negative Appearance (test code = Appearance) Clear Color (test code = Color) Yellow [facility]Ur[facility]ysis macro (dipstick) panel - [id number] 10:55:04 Test Item Value Reference Range Interpretation Comments Leukocytes (test code = Leukocytes) Small Nitrite (test code = Nitrite) negative Urobilinogen (test code = .2 Urobilinogen) Protein (test code = Protein) Trace pH (test code = pH) 6.0 Blood (test code = Blood) Moderate Specific [place] (test code = 1.030 Specific [place]) Ketone (test code = Ketone) Negative Bilirubin (test code = Bilirubin) Negative Glucose (test code = Glucose) Negative Appearance (test code = Appearance) Clear Color (test code = Color) Yellow [facility] Auto Differential panel - [id number] 10:34:00 Test Item Value Reference Range Interpretation Comments white blood count (test code = 6.6 K/uL 4.0-11.5 white blood count) red blood count (test code = red 4.14 M/uL 3.80-5.20 blood count) Hemoglobin [Mass/volume] in Blood 12.2 g/dL 10.5-15.7 (test code = 718-7) hematocrit (test code = hematocrit) 36.5 % 34.0-50.0 Erythrocyte mean corpuscular volume 88.2 fL 78-98 [Entitic volume] (test code = 65803-6) Erythrocyte mean corpuscular 29.3 pg 26.2-33.4 hemoglobin [Entitic mass] (test code = 96652-5) mean corpuscular HGB conc (test 33.3 g/dL 31.5-36.2 code = mean corpuscular HGB conc) red cell distribution width (test 11.6 % 11.5-15.5 code = red cell distribution width) Platelets [#/volume] in Blood (test 214 K/uL 137-338 code = 63220-9) Platelet mean volume [Entitic 6.9 fL 8.4-11.8 L volume] in Blood (test code = 31793-8) Neutrophils.band form/100 67.8 % 44.4-80.1 leukocytes in Blood (test code = 99515-5) Lymphocytes/100 leukocytes in Body 24.9 % 10.0-50.0 fluid (test code = 18784-5) Monocytes/100 leukocytes in Blood 4.7 % 3.6-12.04 by Automated count (test code = 5905-5) Eosinophils/100 leukocytes in Blood 1.7 % 0.0-5.41 by Automated count (test code = 713-8) Basophils/100 leukocytes in Blood 0.9 % 0.0-0.79 H by Automated count (test code = 706-2) [facility] HospitalReagin Ab [Presence] in Serum by [id number] 10:34:00 Test Item Value Reference Range Interpretation Comments Reagin Ab [Presence] in Serum by nonreactive nonreactive RPR (test code = 31279-1) [facility] HospitalRubella virus IgG Ab [Titer] in [id number] 10:34:00 Test Item Value Reference Range Interpretation Comments Rubella virus IgG Ab 123.8 [IU]/mL [Units/volume] in Serum by Immunoassay (test code = 5334-8) [facility] HospitalABO & Rh group [Type] in [id number] 10:34:00 Test Item Value Reference Range Interpretation Comments Rh [Type] in Blood (test code = 4+ 64209-9) ABO and Rh group panel - Blood A positive (test code = 06403-7) [facility] HospitalBlood group antibody screen [Presence] in Serum or Plasma 2018-05-14 10:34:00 Test Item Value Reference Range Interpretation Comments Blood group antibody screen negative [Presence] in Serum or Plasma (test code = 890-4) [facility] HospitalHIV 1+2 Ab [Presence] in [id number] 10:34:00HIV P24 AgHIV-1/2 [facility]MaW[facility] HospitalCB W Auto Differential panel - Blood 2018-05-14 10:34:00 Test Item Value Reference Range Interpretation Comments white blood count (test code = 6.6 K/uL 4.0-11.5 white blood count) red blood count (test code = red 4.14 M/uL 3.80-5.20 blood count) Hemoglobin [Mass/volume] in Blood 12.2 g/dL 10.5-15.7 (test code = 718-7) hematocrit (test code = hematocrit) 36.5 % 34.0-50.0 Erythrocyte mean corpuscular volume 88.2 fL 78-98 [Entitic volume] (test code = 49987-2) Erythrocyte mean corpuscular 29.3 pg 26.2-33.4 hemoglobin [Entitic mass] (test code = 28914-0) mean corpuscular HGB conc (test 33.3 g/dL 31.5-36.2 code = mean corpuscular HGB conc) red cell distribution width (test 11.6 % 11.5-15.5 code = red cell distribution width) Platelets [#/volume] in Blood (test 214 K/uL 137-338 code = 01605-8) Platelet mean volume [Entitic 6.9 fL 8.4-11.8 L volume] in Blood (test code = 47708-5) Neutrophils.band form/100 67.8 % 44.4-80.1 leukocytes in Blood (test code = 66460-0) Lymphocytes/100 leukocytes in Body 24.9 % 10.0-50.0 fluid (test code = 65160-0) Monocytes/100 leukocytes in Blood 4.7 % 3.6-12.04 by Automated count (test code = 5905-5) Eosinophils/100 leukocytes in Blood 1.7 % 0.0-5.41 by Automated count (test code = 713-8) Basophils/100 leukocytes in Blood 0.9 % 0.0-0.79 H by Automated count (test code = 706-2) [facility] HospitalReagin Ab [Presence] in Serum by [id number] 10:34:00 Test Item Value Reference Range Interpretation Comments Reagin Ab [Presence] in Serum by nonreactive nonreactive RPR (test code = 74720-1) [facility] HospitalRubella virus Ab [Titer] in [id number] 10:34:00 Test Item Value Reference Range Interpretation Comments Rubella virus IgG Ab 123.8 [IU]/mL [Units/volume] in Serum by Immunoassay (test code = 5334-8) [facility] GroupABO & Rh group [Type] in [id number] 10:34:00 Test Item Value Reference Range Interpretation Comments Rh [Type] in Blood (test code = 4+ 19628-8) ABO and Rh group panel - Blood A positive (test code = 06666-9) [facility] HospitalBlood group antibody screen [Presence] in Serum or Plasma 2018-05-14 10:34:00 Test Item Value Reference Range Interpretation Comments Blood group antibody screen negative [Presence] in Serum or Plasma (test code = 890-4) [facility] HospitalHIV 1+2 Ab [Presence] in [id number] 10:34:00HIV P24 AgHIV-1/2 AbSh[facility]key Iss[facility]ena Community HospitalChlamydia trachomatis+Neisseria gonorrhoeae DNA [Presence] in Cervix by Probe and target amplification [id number] 10:34:00ResultsSharkey Issaquena Community HospitalBacteria identified in Urine by Culture 2018-05-14 10:34:00 Test Item Value Reference Range Interpretation Comments Bacteria identified in no growth at 48 hrs. Urine by Culture (test code = 630-4) [facility] HospitalHepatitis B virus surface Ag [Presence] in Serum 2018-05-14 10:34:00 Test Item Value Reference Range Interpretation Comments .hepatitis B surface antigen (test negative negative code = .hepatitis B surface antigen) [facility] HospitalMicroscopic observation [Identifier] in Cervix by Cyto stain.thin [id number] 10:34:00[facility] and Inf[facility]
--- NOTE | 2022-02-18 19:56 | RAD REPORT ---
EXAM DESCRIPTION: Virgilio Single View02/18/2022 7:41 pm CLINICAL HISTORY: Dizziness and nausea COMPARISON: none FINDINGS: The lungs appear clear of acute infiltrate. The heart is normal size IMPRESSION: No acute abnormalities displayed
[2022-02-18 20:04] LABS: Urine Blood 2+ (Negative); Urine Glucose Negative (Negative); Urine Protein Negative (Negative); Urine Specific Gravity 1.025 (1.005-1.030)
[2022-02-18 20:33] LABS: Urine Specific Gravity/Preg 1.025 (1.005-1.030)
[2022-02-18 20:35] LABS: Absolute Lymphocytes (CBC) 1.2 K/uL (0.7-4.9); Lymphocytes % 13.7 % (15.3-44.8); MCV 84.9 fL (80-100); MPV 7.4 fL (7.6-11.3); RBC Red Blood Cell Count 4.59 M/uL (3.86-4.86)
[2022-02-18 20:37] LABS: Potassium 3.8 mmol/L (3.5-5.1)
--- NOTE | 2022-02-18 22:26 | ER ---
Nurse's Notes [facility] Name: Bárbara Stephens Age: 37 yrs Sex: Female : 1985 Arrival Date: 02/18/2022 Time: 18:09 Bed 4 Private MD: Diagnosis: Lightheadedness;Muscle weakness (generalized) Presentation: 02/18 18:41 Chief complaint: Patient states: intermittent episodes of dizziness and headaches with kb3 associated nausea x1 month. Reports she has been feeling unwell all day but had a sudden onset of increased dizziness and feeling like she was going to pass out at 1730. Coronavirus screen: Vaccine status: Patient reports being unvaccinated. Client denies travel out of the [place] in the last 14 days. Ebola Screen: Patient negative for fever greater than or equal to 101.5 degrees Fahrenheit, and additional compatible Ebola Virus Disease symptoms Patient denies exposure to infectious person. Patient denies travel to an Ebola-affected area in the 21 days before illness onset. No acute neurological deficit is noted. Initial Sepsis Screen: Does the patient meet any 2 criteria? No. Patient's initial sepsis screen is negative. Does the patient have a suspected source of infection? No. Patient's initial sepsis screen is negative. Risk Assessment: Do you want to hurt yourself or someone else? Patient reports no desire to harm self or others. Onset of symptoms is unknown. 18:41 Method Of Arrival: Ambulatory kb3 18:41 Acuity: CHANTAL 3 kb3 Triage Assessment: 18:43 The onset of the patients symptoms was at an unknown time. General: Appears in no kb3 apparent distress. Behavior is calm, cooperative. Pain: Complains of pain in head Pain does not radiate. Pain currently is 4 out of 10 on a pain scale. Quality of pain is described as aching, dull. Neuro: No deficits noted. Reports dizziness, headache. 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 Last tetanus immunization: unknown. - Social history:: Smoking status: Patient denies any tobacco usage or history of. Screenin:35 Abuse screen: Denies threats or abuse. Denies injuries from another. Nutritional as6 screening: No deficits noted. Tuberculosis screening: No symptoms or risk factors identified. Fall Risk None identified. Assessment: 20:00 General: Appears comfortable, Behavior is calm, cooperative. Pain: Denies pain. Neuro: ll3 Reports dizziness, since 3 weeks ago paresthesias in left arm. 20:00 Respiratory: Respiratory effort is even, unlabored, Respiratory pattern is regular, ll3 symmetrical. Derm: Skin is pink, warm \T\ dry. 21:34 Reassessment: No changes from previously documented assessment. Patient and/or family ll3 updated on plan of care and expected duration. Pain level reassessed. Patient is alert, oriented x 3, equal unlabored respirations, skin warm/dry/pink. Vital Signs: 18:41 BP 150 / 108; Pulse 114; Resp 20; Temp 98; Pulse Ox 98% ; Weight 68.49 kg; Height 4 ft. kb3 11 in. (149.86 cm); Pain 4/10; 21:32 BP 141 / 91; Pulse 93; Resp 16; Pulse Ox 99% on R/A; ll3 22:35 BP 119 / 87; Pulse 86; Resp 18 S; Pulse Ox 99% on R/A; as6 18:41 Body Mass Index 30.50 (68.49 kg, 149.86 cm) kb3 ED Course: 18:09 Patient arrived in ED. dt4 18:43 Triage completed. kb3 18:43 Arm band placed on right wrist. kb3 19:02 aJsbir Guevara DO is Attending Physician. ms3 19:31 Lukasz Peters, ALISHA is Primary Nurse. as6 19:43 CXR XRAY In Process Unspecified. EDMS 20:24 Inserted saline lock: 20 gauge in right antecubital area, using aseptic technique. oe Blood collected. 22:24 Leonel Obando MD is Referral Physician. ms3 22:24 Jj Cabello DO is Referral Physician. ms3 22:35 Placed in gown. Bed in low position. Call light in reach. as6 22:35 No provider procedures requiring assistance completed. IV discontinued, intact, as6 bleeding controlled, No redness/swelling at site. Pressure dressing applied. Administered Medications: No medications were administered Medication: 22:35 VIS not applicable for this client. as6 Outcome: 22:25 Discharge ordered by . ms3 22:35 Discharged to home ambulatory, with significant other. as6 22:35 Condition: stable 22:35 Discharge instructions given to patient, Instructed on discharge instructions, follow up and referral plans. Demonstrated understanding of instructions, follow-up care. 22:36 Patient left the ED. as6 Signatures: Dispatcher [employer] EDMS Parker Ervin Marcus, DO DO ms3 Lukasz Peters, RN RN as6 Barbra Wren RN RN ll3 Noa Renner RN RN kb3 Amelia Melo dt4 Corrections: (The following items were deleted from the chart) 18:44 18:43 Allergies: No Known Allergies; kb3 kb3 21:34 20:00 General: Appears comfortable, Behavior is calm, cooperative, ll3 ll3
--- NOTE | 2022-02-18 22:26 | EDPHYS ---
Physician Documentation [facility] Name: Bárbara Stephens Age: 37 yrs Sex: Female : 1985 Arrival Date: 02/18/2022 Time: 18:09 Bed 4 Private MD: ED Physician Jasbir Guevara HPI: 02/18 20:07 This 37 yrs old Female presents to ER via Ambulatory with complaints of ms3 Weakness, Other, Dizziness. 20:07 The patient presents to the emergency department with weakness of the entire body, ms3 generalized weakness, that is moderate. Onset: The symptoms/episode began/occurred last night. Context:. Associated signs and symptoms: The patient has no apparent associated signs or symptoms. Severity of symptoms: At their worst the symptoms were moderate in the emergency department the symptoms are unchanged Pain is currently a 0 / 10. Patient's baseline: Neuro: alert and fully oriented, Motor: no deficits, Ambulation: walks without assistance, Speech: normal. Current symptoms: Currently, the patient is not experiencing any symptoms, the patient feels back to baseline. 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 Last tetanus immunization: unknown. - Social history:: Smoking status: Patient denies any tobacco usage or history of. ROS: 20:07 Constitutional: Negative for fever, and chills. Neck: Negative for injury, pain, and ms3 swelling, Cardiovascular: Negative for chest pain, and palpitations. Respiratory: Negative for shortness of breath, cough, wheezing, and pleuritic chest pain, Abdomen/GI: Negative for abdominal pain, nausea, vomiting, diarrhea, and constipation, MS/Extremity: Negative for injury and deformity, Skin: Negative for injury, rash, and discoloration. 20:07 Neuro: Positive for lightheadedness. 20:07 All other systems are negative. Exam: 20:07 Constitutional: This is a well developed, well nourished patient who is awake, alert, ms3 and in no acute distress. Head/Face: Normocephalic, atraumatic. Neck: Trachea midline, no cervical lymphadenopathy. Supple, full range of motion without nuchal rigidity, or vertebral point tenderness. No Meningismus. Chest/axilla: Normal chest wall appearance and motion. Nontender with no deformity. Cardiovascular: Regular rate and rhythm with a normal S1 and S2. No gallops, murmurs, or rubs. Normal PMI, no JVD. No pulse deficits. Respiratory: Lungs have equal breath sounds bilaterally, clear to auscultation and percussion. No rales, rhonchi or wheezes noted. No increased work of breathing, no retractions or nasal flaring. Abdomen/GI: Soft, non-tender, with normal bowel sounds. No distension or tympany. No guarding or rebound. No evidence of tenderness throughout. Skin: Warm, dry with normal turgor. Normal color with no rashes, no lesions, and no evidence of cellulitis. MS/ Extremity: Pulses equal, no cyanosis. Neurovascular intact. Full, normal range of motion. Neuro: Awake and alert, GCS 15, oriented to person, place, time, and situation. Cranial nerves II-XII grossly intact. Motor strength 5/5 in all extremities. Sensory grossly intact. Cerebellar exam normal. Normal gait. 22:06 ECG was reviewed by the Attending Physician. ms3 Vital Signs: 18:41 BP 150 / 108; Pulse 114; Resp 20; Temp 98; Pulse Ox 98% ; Weight 68.49 kg; Height 4 ft. kb3 11 in. (149.86 cm); Pain 4/10; 21:32 BP 141 / 91; Pulse 93; Resp 16; Pulse Ox 99% on R/A; ll3 22:35 BP 119 / 87; Pulse 86; Resp 18 S; Pulse Ox 99% on R/A; as6 18:41 Body Mass Index 30.50 (68.49 kg, 149.86 cm) kb3 MDM: 19:24 Patient medically screened. ms3 22:38 Data reviewed: vital signs, nurses notes, lab test result(s), EKG, and as a result, I ms3 will discharge patient. Counseling: I had a detailed discussion with the patient and/or guardian regarding: the historical points, exam findings, and any diagnostic results supporting the discharge/admit diagnosis, lab results, radiology results, the need for outpatient follow up, to return to the emergency department if symptoms worsen or persist or if there are any questions or concerns that arise at home. ED course: Discussed labs, EKG, x-ray with patient and her . Patient to follow-up with Dr. Obando and her primary care physician in 2 to 3 days. Patient understands and agrees with plan. All questions were answered. Return precautions discussed include worsening symptoms, or any other concerns. On reevaluation patient is alert and oriented x4, in no apparent distress, nontoxic-appearing, ambulatory in the emergency department, speaking full sentences.. 02/18 19:27 Order name: CBC with Diff; Complete Time: 20:58 ms3 02/18 19:27 Order name: BMP; Complete Time: 20:58 ms3 02/18 19:27 Order name: CXR XRAY; Complete Time: 20:06 ms3 02/18 20:05 Order name: Urine Dipstick-Ancillary; Complete Time: 20:06 EDMS 02/18 20:18 Order name: Urine --Ancillary (enter results); Complete Time: 20:58 mw2 02/18 21:40 Order name: EKG; Complete Time: 21:41 ms3 02/18 19:27 Order name: Urine Test (obtain specimen); Complete Time: 20:21 ms3 02/18 19:27 Order name: Urine Dipstick-Ancillary (obtain specimen); Complete Time: 20:21 ms3 02/18 21:40 Order name: EKG - Nurse/Tech; Complete Time: 22:20 ms3 EC:06 Rate is 97 beats/min. Rhythm is regular. QRS [place] is Normal. [place] interval is normal. QRS ms3 interval is normal. Clinical impression: Normal ECG. Interpreted by me. Reviewed by me. Administered Medications: No medications were administered Disposition Summary: 02/18/22 22:25 Discharge Ordered Location: Home ms3 Condition: Stable ms3 Diagnosis - Lightheadedness ms3 - Muscle weakness (generalized) ms3 Followup: ms3 - With: Leonel Obando MD - When: 2 - 3 days - Reason: Recheck today's complaints Followup: ms3 - With: Jj Cabello DO - When: 2 - 3 days - Reason: Recheck today's complaints Discharge Instructions: - Discharge Summary Sheet ms3 - Weakness, [id number] ms3 - Dizziness, [id number] ms3 Forms: - Medication Reconciliation Form ms3 - Thank You Letter ms3 - Antibiotic Education ms3 - Prescription Opioid Use ms3 Signatures: Dispatcher [employer] EDMS Jasbir Guevara DO DO ms3 Noa Renner, RN RN kb3 Corrections: (The following items were deleted from the chart) 18:44 18:43 Allergies: No Known Allergies; kb3 kb3
[2022-02-18 22:45] VITALS: TEMP 98
[2022-02-18 22:46] VITALS: O2SAT 99
[2022-02-18 22:47] VITALS: BP 119/87
--- NOTE | 2022-02-20 13:50 | EKG ---
Test Date: 2022-02-18 Test Time: 22:06:05 Student Records Coordinator: LL MEASUREMENT RESULTS: Intervals: Rate: 97 AK: 136 QRSD: 82 QT: 356 QTc: 452 [place]: P: 31 AK: 136 QRS: 39 T: 8 INTERPRETIVE STATEMENTS: Normal sinus rhythm Normal ECG No previous ECG available for comparison Electronically Signed On 02-20-22 13:47:17 PROFILE SHAPER OPERATOR by Dylon Carmen
== END 2022-02-18 22:36 | disposition home or self-care (01) ==
LOC: ER 18:06
DX: M62.81 Muscle weakness (generalized) (principal); I10 Essential (primary) hypertension; Z88.6 Allergy status to analgesic agent
CPT/HCPCS: 36415; 71045; 80048; 81003; 81025; 85025; 93005; 99283